=== PATIENT | male | born 1990 | race Caucasian/White ===

== ENCOUNTER 2017-10-17 22:57 | Emergency (ER) | payer OTHER ==
[~2017-10-17] VITALS: Ht 182.9 cm; Wt 83.9 kg
[2017-10-17 23:06] VITALS: BP 123/67
[2017-10-17] MEDS ORDERED: NEOMY SULF/BACITRAC ZN/POLY 15 GM TUBE TP STA (23:35)
[2017-10-17] MEDS ORDERED: IBUPROFEN 600 MG TABLET PO ONE (23:40)
[2017-10-17] MEDS ORDERED: CLINDAMYCIN HCL 150 MG CAPSULE PO ONE (23:40)
[2017-10-18] MEDS ORDERED: IBUPROFEN 600 MG TABLET PO ONE
[2017-10-18] MEDS ORDERED: CLINDAMYCIN HCL 150 MG CAPSULE PO ONE
== END 2017-10-17 23:57 | disposition home or self-care (01) ==
LOC: ER 23:01
DX: L03.115 Cellulitis of right lower limb (principal)
CPT/HCPCS: 99284; A4606; Z7610